=== PATIENT | male | born 1975 | race Caucasian/White ===

== ENCOUNTER → 2020-04-17 | Outpatient (CLI) | payer OTHER ==
--- NOTE | 2020-04-17 12:35 | RAD ---
LUMBAR SPINE 2-3V DATE: 04/17/2020 11:58 AM INDICATION: Reason: PAIN / Spl. Instructions: / History: COMPARISON: None. FINDINGS: Five non-rib bearing lumbar-type vertebral bodies are present. Bones/Alignment: No evidence of acute compression fracture. There is no listhesis. Joints: There is no disc space loss. Miscellaneous: None. IMPRESSION: No osseous abnormalities. Electronically signed by: Doyle Bolden MD (04/17/2020 12:32 PM) HANG
== END | disposition home or self-care (01) ==
LOC: RAD 10:50
PROVIDERS: ATTEND Anesthesiology Pain Medicine
DX: M54.5 Low back pain (principal)
CPT/HCPCS: 72100